=== PATIENT | female | born 1985 | race Caucasian/White ===

== ENCOUNTER → 2021-04-07 16:34 | Outpatient (CLI) | payer OTHER, SELFPAY ==
[2021-04-07 15:12] VITALS: BMI 23.8
[2021-04-12 18:53] LABS: HPV APTIMA, High Risk Negative (Negative)
== END ==
PROVIDERS: Referring Provider Obstetrics & Gynecology; Visit Provider Obstetrics & Gynecology
DX: Z12.4 Encounter for screening for malignant neoplasm of cervix (principal)
CPT/HCPCS: 87624; 88175; G0145

== ENCOUNTER → 2022-07-27 | Outpatient (CLI) | payer BC, SELFPAY ==
[2022-07-27 19:13] LABS: Amphetamine Urine VISTA NEGATIVE (<1000 ng/mL); Barbiturate Urine VISTA NEGATIVE (< 200 ng/mL); Benzodiazepine Urine VISTA NEGATIVE (< 200 ng/mL); Cocaine Urine VISTA NEGATIVE (< 300 ng/mL); Ecstacy Urine VISTA NEGATIVE (< 500 ng/mL); Methadone Urine VISTA NEGATIVE (< 300 ng/mL); PCP Urine VISTA NEGATIVE (< 25 ng/mL); THC Urine VISTA NEGATIVE (< 50 ng/mL); Vista UDS pH Range 5
[2022-07-31 06:06] LABS: Chlamydia By Nucleic Acid AMP Negative (Negative)
[2022-08-02 08:49] LABS: Gonococcus By Nucleic Acid AMP Negative (Negative)
== END | disposition home or self-care (01) ==
PROVIDERS: Visit Provider Obstetrics & Gynecology
DX: Z34.00 Encounter for supervision of normal first pregnancy, unspecified trimester (principal)
CPT/HCPCS: 80307; 87086; 87088; 87491; 87591

== ENCOUNTER → 2022-09-04 | Outpatient (CLI) | payer BC, SELFPAY ==
[2022-09-04 17:07] LABS: Absolute Lymphocyte Count 2.24 X10^3/uL (0.83-4.51); Basophil# 0.07 X10^3/uL; Basophil% 0.5 % (0-1); Eosinophil# 0.32 X10^3/uL; Eosinophils% 2.5 % (0-5); Hematocrit 34.1 % (37-47); Hemoglobin 11.4 g/dL (12.0-15.0); Lymphocyte # 2.24 X10^3/ul (0.83-4.51); Lymphocyte % 17.5 % (19-41); Mean Corp Hgb Conc 33.4 g/dL (32-36); Mean Corpuscular Hgb 30.4 pg (27.0-32.0); Mean Corpuscular Volume 90.9 fL (81-99); Mean Platelet Vol. 8.9 fl (6.2-12.0); Monocyte# 1.07 X10^3/uL; Monocyte% 8.4 % (0-10); NRBC Flagged by Analyzer 0 % (0-5); Neutrophil # 8.96 X10^3/uL (2.7-7.7); Neutrophil % 70.2 % (47-70); Platelet Count 300 K/mm3 (150-450); RBC Distribution Width CV 11.8 % (11.6-14.6); RBC Distribution Width SD 38.9 fl (35.1-43.9); Red Blood Count 3.75 M/mm3 (4.2-5.4); White Blood Count 12.8 K/mm3 (4.4-11.0)
[2022-09-04 18:40] LABS: HIV - WCH Non-Reactive (Nonreactive); Hepatitis B Surface Antigen Non-Reactive (Nonreactive); Hepatitis C Antibody Non-Reactive (Nonreactive); Rubella IgG Equiv (Nonreactive); Syphilis Antibodies Non-reactive
== END | disposition home or self-care (01) ==
PROVIDERS: Referring Provider Obstetrics & Gynecology; Visit Provider Obstetrics & Gynecology
DX: Z34.00 Encounter for supervision of normal first pregnancy, unspecified trimester (principal)
CPT/HCPCS: 36415; 85025; 86703; 86762; 86780; 86803; 86850; 86900; 86901; 87340

== ENCOUNTER → 2022-11-28 | Outpatient (CLI) | payer BC, SELFPAY ==
[2022-11-28 16:13] LABS: Absolute Lymphocyte Count 1.92 X10^3/uL (0.83-4.51); Absolute Neutrophil Count 8.4 X10^3/uL (2.0-7.7); Basophil# 0.04 X10^3/uL; Basophil% 0.3 % (0-1); Eosinophil# 0.23 X10^3/uL; Hematocrit 29.8 % (37-47); Hemoglobin 9.6 g/dL (12.0-15.0); Lymphocyte # 1.92 X10^3/ul (0.83-4.51); Lymphocyte % 16.5 % (19-41); Mean Corp Hgb Conc 32.2 g/dL (32-36); Mean Corpuscular Hgb 28.6 pg (27.0-32.0); Mean Corpuscular Volume 88.7 fL (81-99); Mean Platelet Vol. 8.8 fl (6.2-12.0); Monocyte# 0.87 X10^3/uL; Monocyte% 7.5 % (0-10); NRBC Flagged by Analyzer 0 % (0-5); Platelet Count 307 K/mm3 (150-450); RBC Distribution Width CV 11.9 % (11.6-14.6); RBC Distribution Width SD 38.5 fl (35.1-43.9); Red Blood Count 3.36 M/mm3 (4.2-5.4); White Blood Count 11.7 K/mm3 (4.4-11.0)
[2022-11-28 16:36] LABS: Glucose Challenge Gest 1H 50g 154 mg/dL (70-140)
[2022-11-28 17:13] LABS: HIV - WCH Non-Reactive (Nonreactive); Syphilis Antibodies Non-reactive
== END | disposition home or self-care (01) ==
LOC: PAVLAB 15:53
PROVIDERS: Referring Provider Obstetrics & Gynecology; Visit Provider Obstetrics & Gynecology
DX: Z34.92 Encounter for supervision of normal pregnancy, unspecified, second trimester (principal)
CPT/HCPCS: 36415; 82950; 85025; 86703; 86780; 86900; 86901

== ENCOUNTER → 2022-12-05 | Outpatient (CLI) | payer BC, SELFPAY ==
[2022-12-05 08:11] LABS: Glucose GTT-Gestation. Fasting 86 mg/dL (<105)
[2022-12-05 08:36] LABS: Glucose GTT-Gestational 1 Hr 160 mg/dL (<190)
[2022-12-05 09:30] LABS: Glucose GTT-Gestational 2 Hr 163 mg/dL (<165)
[2022-12-05 11:25] LABS: Glucose GTT-Gestational 3 Hr 109 L (<145)
== END | disposition home or self-care (01) ==
LOC: LAB 06:50
PROVIDERS: Visit Provider Obstetrics & Gynecology
DX: Z13.1 Encounter for screening for diabetes mellitus (principal)
CPT/HCPCS: 36415; 82951; 82952

== ENCOUNTER → 2022-12-25 | Outpatient (CLI) | payer BC, SELFPAY ==
[2022-12-25 15:56] LABS: Absolute Lymphocyte Count 1.84 X10^3/uL (0.83-4.51); Basophil# 0.06 X10^3/uL; Basophil% 0.5 % (0-1); Eosinophil# 0.25 X10^3/uL; Eosinophils% 2.2 % (0-5); Hematocrit 31.1 % (37-47); Hemoglobin 10.1 g/dL (12.0-15.0); Lymphocyte # 1.84 X10^3/ul (0.83-4.51); Lymphocyte % 16.3 % (19-41); Mean Corp Hgb Conc 32.5 g/dL (32-36); Mean Corpuscular Hgb 28.1 pg (27.0-32.0); Mean Corpuscular Volume 86.6 fL (81-99); Mean Platelet Vol. 8.8 fl (6.2-12.0); Monocyte# 0.98 X10^3/uL; Monocyte% 8.7 % (0-10); NRBC Flagged by Analyzer 0 % (0-5); Neutrophil # 7.95 X10^3/uL (2.7-7.7); Neutrophil % 70.3 % (47-70); Platelet Count 277 K/mm3 (150-450); RBC Distribution Width CV 13.8 % (11.6-14.6); RBC Distribution Width SD 42.5 fl (35.1-43.9); Red Blood Count 3.59 M/mm3 (4.2-5.4); White Blood Count 11.3 K/mm3 (4.4-11.0)
== END | disposition home or self-care (01) ==
LOC: PAVLAB 15:41
PROVIDERS: Referring Provider Nurse Practitioner Women's Health; Visit Provider Nurse Practitioner Women's Health
DX: O99.013 Anemia complicating pregnancy, third trimester (principal); Z3A.00 Weeks of gestation of pregnancy not specified
CPT/HCPCS: 36415; 85025

== ENCOUNTER → 2023-01-15 | Outpatient (CLI) | payer BC, SELFPAY ==
[2023-01-16 01:34] LABS: Group B Strep DNA By PCR Negative (Negative); Internal Control PASS; Probe Check PASS; Specimen Processing Control PASS
== END | disposition home or self-care (01) ==
LOC: LABSPEC 16:42
PROVIDERS: Referring Provider Nurse Practitioner Women's Health; Visit Provider Nurse Practitioner Women's Health
DX: Z34.90 Encounter for supervision of normal pregnancy, unspecified, unspecified trimester (principal)
CPT/HCPCS: 87081; 87653

== ENCOUNTER → 2023-01-22 | Outpatient (CLI) | payer BC, SELFPAY ==
[2023-01-22 15:56] LABS: Absolute Lymphocyte Count 1.43 X10^3/uL (0.83-4.51); Absolute Neutrophil Count 6.4 X10^3/uL (2.0-7.7); Basophil# 0.04 X10^3/uL; Basophil% 0.4 % (0-1); Eosinophil# 0.15 X10^3/uL; Eosinophils% 1.7 % (0-5); Hematocrit 33.7 % (37-47); Hemoglobin 10.6 g/dL (12.0-15.0); Lymphocyte # 1.43 X10^3/ul (0.83-4.51); Lymphocyte % 15.7 % (19-41); Mean Corp Hgb Conc 31.5 g/dL (32-36); Mean Corpuscular Hgb 28.3 pg (27.0-32.0); Mean Corpuscular Volume 89.9 fL (81-99); Monocyte# 0.88 X10^3/uL; Monocyte% 9.7 % (0-10); NRBC Flagged by Analyzer 0 % (0-5); Neutrophil # 6.44 X10^3/uL (2.7-7.7); Platelet Count 263 K/mm3 (150-450); RBC Distribution Width CV 15.8 % (11.6-14.6); RBC Distribution Width SD 51.1 fl (35.1-43.9); Red Blood Count 3.75 M/mm3 (4.2-5.4); White Blood Count 9.1 K/mm3 (4.4-11.0)
== END | disposition home or self-care (01) ==
LOC: PAVLAB 15:37
PROVIDERS: Referring Provider Obstetrics & Gynecology; Visit Provider Obstetrics & Gynecology
DX: O99.013 Anemia complicating pregnancy, third trimester (principal)
CPT/HCPCS: 36415; 85025

== ENCOUNTER → 2023-01-29 | Outpatient (CLI) | payer BC, SELFPAY ==
[2023-01-29 16:53] LABS: Absolute Neutrophil Count 6.3 X10^3/uL (2.0-7.7); Basophil# 0.05 X10^3/uL; Basophil% 0.5 % (0-1); Eosinophil# 0.17 X10^3/uL; Eosinophils% 1.8 % (0-5); Hematocrit 35.2 % (37-47); Lymphocyte % 16.9 % (19-41); Mean Corp Hgb Conc 31.3 g/dL (32-36); Mean Corpuscular Hgb 27.7 pg (27.0-32.0); Mean Corpuscular Volume 88.7 fL (81-99); Mean Platelet Vol. 9.1 fl (6.2-12.0); Monocyte# 1.08 X10^3/uL; Monocyte% 11.4 % (0-10); NRBC Flagged by Analyzer 0 % (0-5); Neutrophil # 6.33 X10^3/uL (2.7-7.7); Neutrophil % 67.2 % (47-70); Platelet Count 246 K/mm3 (150-450); RBC Distribution Width CV 16.2 % (11.6-14.6); RBC Distribution Width SD 53.1 fl (35.1-43.9); Red Blood Count 3.97 M/mm3 (4.2-5.4); White Blood Count 9.4 K/mm3 (4.4-11.0)
[2023-01-29 17:20] LABS: Protein, Urine (Random) 9.9 mg/dL (<11.9); Protein:Creat Ratio 419 mg/g CRE (0-200)
[2023-01-29 17:31] LABS: ALB/GLOB Ratio 0.6 RATIO (0.9-2.4); AST(SGOT) 18 U/L (15-37); Alanine Aminotransfer ALT/SGPT 17 U/L (13-56); Albumin, Serum 2.4 g/dL (3.2-5.0); Alkaline Phosphatase 168 U/L (45-117); Anion Gap 9 (5-15); BUN 8 mg/dL (7-18); BUN/Creat Ratio 14.2 RATIO (10-20); Calcium,Total 8.7 mg/dL (8.5-10.1); Chloride 104 mmol/L (98-107); Creatinine, Serum 0.56 mg/dL (0.55-1.02); EST Glomerular Filtration Rate 129 mL/min (>60); Est Glom Filt Rate - Afr Amer 156 mL/min (>60); Globulin 4.1 g/dL (2.2-4.2); Glucose 73 mg/dL (74-106); Potassium 3.9 mmol/L (3.5-5.1); Protein, Total 6.5 g/dL (6.4-8.2); Sodium Level 136 mmol/L (136-145); Uric Acid 2.7 mg/dL (2.6-6.0)
== END | disposition home or self-care (01) ==
PROVIDERS: Referring Provider Registered Nurse; Visit Provider Registered Nurse
DX: Z34.00 Encounter for supervision of normal first pregnancy, unspecified trimester (principal)
CPT/HCPCS: 36415; 80053; 82570; 84156; 84550; 85025; 87086; 87088

== ENCOUNTER → 2023-01-31 | Outpatient (CLI) | payer BC, SELFPAY ==
[2023-01-31 17:26] LABS: 24 Hour Urine Protein 495.8 mg/24HR (<150 MG/24HR); 24HR. UA Prot. Total Volume 2350 mL; 24HR. Urine Creatinine 1.28 g/24 HR (0.70-1.90); Creat.Clear Total Volume 2350 mL; Creatinine Clearance 38 ml/min (100-200); Creatinine Serum Creat 0.6 mg/dL (0.6-1.0); Creatinine Urine < 13.0 mg/dL (NO RANGE EST.); EST Glomerular Filtration Rate 130 mL/min (>60); Est Glom Filt Rate - Afr Amer 157 mL/min (>60); Urine Protein (24 Hour) 21.1 mg/dL (<11.9)
== END | disposition home or self-care (01) ==
LOC: LAB 15:39
PROVIDERS: Visit Provider Obstetrics & Gynecology
DX: O12.10 Gestational proteinuria, unspecified trimester (principal); Z3A.00 Weeks of gestation of pregnancy not specified
CPT/HCPCS: 36415; 81050; 82570; 82575; 84156

== ENCOUNTER 2023-02-05 19:00 | Inpatient (IN) | payer BC, SELFPAY ==
[2023-02-05] VITALS (7 sets, daily range): BP systolic 112–130; BP diastolic 64–69; PULSE 76–110; TEMP 36.3–36.9; O2SAT 96–98; BMI 33.8
--- NOTE | 2023-02-05 19:18 | HP.PCM.OB_ITS ---
HPI - General General Date of Admission: 02/05/23 HPI Narrative MAGY MCNULTY, is a 37 F who presents for IOL secondary to proteinuria. Maternal Data Information ZOEY Calculator Estimated Delivery Date Method Current WG Current Estimate 02/10/23 LMP (Certain) 39w 2d Other Estimates 02/06/23 Ultrasound #1 39w 6d PFSH PFSH Medical History Asthma Home Medications vit,calcium no.40-iron fum 27 mg iron-folate no.1 1 mg tablet (PNV- Select) tab PO 07/25/22 [History Last Taken Unknown] Allergy/AdvReac Type Severity Reaction Status Date / Time No Known Allergies Allergy Verified 01/29/23 15:26 Family History Grandmother Diabetes Social History adopted: No household members: spouse housing: house current occupational status: employed current occupation: teacher current occupational exposures/hazards: Yes (physical holds on kids) pets and animals: Yes (Not managing litterbox) pets and animals: cat(s) history of recent travel: Yes ([place] in May) out of state: Yes out of country: No sexually active: Yes Smoking Status: Never smoker alcohol intake: never substance use type: does not use well-balanced diet: daily or most days caffeine: No eating out: 1-3 times/week during the past year weight has: increased > 10 lbs what type of physical activity do you participate in: none and walking frequency: 1-2 times per week duration: 30-45 minutes/day shari/anglican: Gnosticist seatbelt use: always do you feel safe at home: Yes additional social history: - Quentin ( May 2021) History 1 Elective abortions Hx Para 0 Spontaneous abortions Hx # Term Pregnancies Ectopic pregnancies Hx # Pregnancies Multiple births # of living children Visit Details Expected Delivery Route/Plan Labor Preferences- CB/BF classes: completed labor support person: Quentin labor intervention preferences: [] pain management options preferred: epidural cut cord/dad catch: open to catching and cutting cord! : yes PP control planned: discussed discussed possible routes of delivery and associated risks: [] special requests: [] Plans Covid status: unvaccinated, had covid 07/2021 Flu vaccine: declines Tdap vaccine: given Rhogam: given LARC form signed: yes movement and labor precautions reviewed. Problem list reviewed and updated with the most current plan of care details and appropriate orders placed. Relevant counseling for the gestational age provided. Continue routine care and follow up unless otherwise noted in visit notes/problem list details OB Flowsheet Initial Weight: Not Recorded Date -?-?-?-?-?-?-?-?-?-?-?-?- EGA Weight BP Urine Prot -?-?-?-?-?-?-?-?-?-?-?-?- Glucose FHR FuHt Pres Dilation -?-?-?-?-?-?-?-?-?-?-?-?- Effaced St Visit Note 07/27/22 -?-?-?-?-?-?-?-?-?-?-?-?- 11w 5d 146 lb 8 oz 121/72 -?-?-?-?-?-?-?-?-?-?-?-?- 156 -?-?-?-?-?-?-?-?-?-?-?-?- JV- CRL consiste nt with LMP. declines genetics. 09/04/22 -?-?-?-?--?-?-?-?-?-?-?-?- 17w 2d 151 lb 108/72 Negative -?-?-?-?-?-?-?-?-?-?-?-?- Negative 150 -?-?-?-?-?-?-?-?-?-?-?-?- SM- no vb alisoni ng 10/02/22 -?-?-?-?-?-?-?-?-?-?-?-?- 21w 2d 157 lb 2 oz 112/66 Nega tive -?-?-?-?-?-?-?-?-?-?-?-?- Negative 155 -?-?-?-?-?-?-?-?-?-?-?-?- MH-No VBhoang Had MFM US today, girl. No concerns 10/30/22 -?-?-?-?-?-?-?-?-?-?-?-?- 25w 2d 163 lb 102/84 -?-?-?-?-?-?-?-?-?-?-?-?- 145 -?-?-?-?-?-?-?-?-?-?-?-?- SM- no vb lof go od fm no regular ctx 11/28/22 -?-?-?-?-?-?-?-?-?-?-?-?- 29w 3d 169 lb 119/71 Negative -?-?-?-?-?-?-?-?-?-?-?--?- Negative 145 -?-?-?-?-?-?-?-?-?-?-?-?- SM- no vb lof go od fm no regular ctxdiscussed adding iron and give rhogam tdap, schedule 3 hr gct 12/11/22 -?-?-?-?-?-?-?-?-?-?-?-?- 31w 2d 168 lb 8 oz 106/74 Nega tive -?-?-?-?-?-?-?-?-?-?-?-?- Negative 147 31 -?-?-?-?-?-?-?-?-?-?-?-?- MH-No VB, LOF. G ood FM. Larc. 12/25/22 -?-?-?-?-?-?-?-?-?-?-?-?- 33w 2d 175 lb 114/74 Negative -?-?-?-?-?-?-?-?-?-?-?-?- Negative 140 34 -?-?-?-?-?-?-?-?-?-?-?-?- SM- no vb lof go od fm n oregualr ctx 01/10/23 -?-?-?-?-?-?-?-?-?-?-?-?- 35w 4d 177 lb 2 oz 120/80 Nega tive -?-?-?-?-?-?-?-?-?-?-?-?- Negative 157 34 -?-?-?-?-?-?-?-?-?-?-?-?- JV- no lof ,vagi nal bleeding, or dec fm. return next week for gbs. 01/15/23 -?-?-?-?-?-?-?-?-?-?-?-?- 36w 2d 180 lb 104/70 Negative -?-?-?-?-?-?-?-?-?-?-?-?- Negative 143 36 -?-?-?-?-?-?-?-?-?-?-?-?- MH-NO VB. LOF. G ood FM. GBS done 01/22/23 -?-?-?-?-?-?-?-?-?-?-?-?- 37w 2d 181 lb 8 oz 117/76 Nega tive -?-?-?-?-?-?-?-?-?-?-?-?- Negative 145 38 -?-?-?-?-?-?-?-?-?-?-?-?- SM- no vb lof go od fm n oregular ctx 01/29/23 -?-?-?-?-?-?-?-?-?-?-?-?- 38w 2d 181 lb 8 oz 105/70 Trac e -?-?-?-?-?-?-?-?-?-?-?-?- Negative 138 38 -?-?-?-?-?-?-?-?-?-?-?-?- LC- no vb/ctx/lo f. good fm. +proteinuria, LC- no vb/ctx/lof. good fm. +proteinuria, PEC outpt work up along with urine cx. d/w Natalia BENTLEY. 02/02/23 -?-?-?-?-?-?-?-?-?-?-?-?- 38w 6d 183 lb 2 oz 116/75 1+ -?-?-?-?-?-?-?-?-?-?-?-?- Negative 140 39 Cephalic 2 -?-?-?-?-?-?-?-?-?-?-?--?- 60 -2 JV- pt has asymptomatic proteinuria. std reactive. she has 1+ pitting edema bilaterally. plan for IOL at 39 weeks. will need follow up with pcp after delivery to rule out kidney disease. no signs of pre-e at this time. 02/05/23 -?-?-?-?-?-?-?-?-?-?-?-?- 39w 2d -?-?-?-?-?-?-?-?-?-?-?-?- -?-?-?-?-?-?-?-?-?-?-?-?- NST FHR Rate Baby A Baseline: 130 Variability:: Moderate Accelerations:: 15 x 15 Decelerations:: None NST Reactive:: Yes FHR Category:: Category I Uterine Activity:: irregular ROS Constitutional Constitutional: Reports systems reviewed and no addt'l complaints, except as documented Eyes Eyes: Denies change in vision ENT HEENT: Reports systems reviewed and no addt'l complaints, except as documented; Denies headache(s) Cardiovascular Cardiovascular: Reports systems reviewed and no addt'l complaints, except as documented; Denies chest pain or dyspnea Respiratory/Chest Respiratory/Chest: Reports systems reviewed and no addt'l complaints, except as documented Gastrointestinal Gastrointestinal: Reports systems reviewed and no addt'l complaints, except as documented; Denies abdominal pain Genitourinary Genitourinary: Reports systems reviewed and no addt'l complaints, except as documented, contractions Details: present (irregular) and movement Details: present; Denies dysuria or genital lesions Musculoskeletal Musculoskeletal: Reports systems reviewed and no addt'l complaints, except as documented Neurologic Neurologic: Reports systems reviewed and no addt'l complaints, except as documented Endocrine Endocrinology: Reports systems reviewed and no addt'l complaints, except as documented Physical Exam Const alert, oriented x3, no apparent distress and healthy appearing HEENT normocephalic and moist oral mucous membranes Head and Scalp: atraumatic Neck full ROM, no lymphadenopathy, supple and thyroid normal General: trachea midline Lymph Lymphatic: no lymphadenopathy noted Chest inspection of chest normal Resp normal respiratory effort Cardio regular rate GI normal to inspection, nondistended, normoactive bowel sounds, soft to palpation and non-tender Inspection: gravid external exam normal Manual OB Exam: estimated gestational size appropriate, presentation cephalic, dilated, effaced and station Extremity normal to inspection General Extremity: Negative for edema Skin no rashes or lesions noted Neuro no focal motor deficits and deep tendon reflexes 2+ bilaterally Motor Exam: strength 5/5 throughout and clonus absent Psych mental status grossly normal Labs Labs Labs: Blood Type O NEGATIVE Antibody Screen NEGATIVE Hct 35.2 % (37-47) L Hgb 11.0 g/dL (12.0-15.0) L Syphilis Total Ab Non-reactive Rubella IgG Antibody Equiv (Nonreactive) Hep Bs Antigen Non-Reactive (Nonreactive) Chlamydia DNA (NISA) Negative (Negative) Neisseria gonorrhoeae DNA (NISA) Negative (Negative) HIV 1&2 Antibody Non-Reactive (Nonreactive) Glucose 1 Hr 50 gm 154 mg/dL (70-140) H Group B Strep DNA Negative (Negative) Assessment & Plan (1) Proteinuria affecting : COMMENT: outpatient PEC labs urine culture to r/o UTI (2) Anemia affecting in third trimester: COMMENT: iron. anemia improved (3) Abnormal glucose affecting : COMMENT: abnl 1 hr, 3 hr gtt. nl (4) Rubella immune status not known: COMMENT: equivocal MMR pp (5) Rh negative state in antepartum period: COMMENT: Rhogam @ 28 weeks and PRN (6) Supervision of normal first : COMMENT: [id number], ZOEY 02/10/23, girl raymundo Quentin (7) : QUALIFIERS: Weeks of gestation: 38 weeks Qualified Code(s): Z3A.38 - 38 weeks gestation of COMMENT: Negative GBS, anatomy nl, discussed genetic & carrier testing and declines (8) Encounter for induction of labor: COMMENT: cytotec overnight planned, epidural PRN PLAN: Plan Patient presents IOL, plan management for with cytotec. Pain management: plans epidural. GBS negative. Management of any complications: proteinuria I have reviewed the [facility] and made any clinically relevant updates.
[2023-02-05 20:11] LABS: Absolute Lymphocyte Count 1.22 X10^3/uL (0.83-4.51); Absolute Neutrophil Count 6.2 X10^3/uL (2.0-7.7); Basophil# 0.03 X10^3/uL; Basophil% 0.4 % (0-1); Eosinophil# 0.13 X10^3/uL; Eosinophils% 1.6 % (0-5); Hematocrit 32.5 % (37-47); Hemoglobin 10.4 g/dL (12.0-15.0); Lymphocyte # 1.22 X10^3/ul (0.83-4.51); Lymphocyte % 14.6 % (19-41); Mean Corpuscular Hgb 27.9 pg (27.0-32.0); Mean Corpuscular Volume 87.1 fL (81-99); Mean Platelet Vol. 9.3 fl (6.2-12.0); Monocyte% 8.4 % (0-10); NRBC Flagged by Analyzer 0 % (0-5); Neutrophil # 6.18 X10^3/uL (2.7-7.7); Neutrophil % 73.9 % (47-70); Platelet Count 228 K/mm3 (150-450); RBC Distribution Width CV 16.1 % (11.6-14.6); RBC Distribution Width SD 51.3 fl (35.1-43.9); Red Blood Count 3.73 M/mm3 (4.2-5.4); White Blood Count 8.4 K/mm3 (4.4-11.0)
[2023-02-05] MEDS: Lactated Ringers 1,000 ML 200 ML IV (21:00)
[2023-02-05] MEDS: Oxytocin 15 Units/NS 250ml 15 UNITS/250 ML IV.SOLN 2 UNITS IV (21:07)
[2023-02-05 21:45] LABS: Syphilis Antibodies Non-reactive
[2023-02-06] VITALS (40 sets, daily range): BP systolic 95–122; BP diastolic 43–72; PULSE 72–98; RESP 16; TEMP 36.1–37.1; O2SAT 94–100
[2023-02-06] MEDS: Lactated Ringers 1,000 ML 200 ML IV ×2 (02:10→07:19)
[2023-02-06] MEDS: LACTATED RINGERS 500 ML 999 ML IV (03:27)
[2023-02-06] MEDS: fentaNYL-bupivacaine (epidural) 100 ML BAG EPIDURAL (04:20)
[2023-02-06] MEDS: Terbutaline 1 MG/ML Vial 0.25 MG SC (08:07)
[2023-02-06] MEDS: Sodium Citrate/Citric Acid 30 ML UDC PO (08:08)
[2023-02-06] MEDS: Cefazolin 2 GM in 0.9% Normal Saline 100 ML IV (08:17)
[2023-02-06] MEDS: Methylergonovine 0.2 MG/ML Ampul IM (08:36)
[2023-02-06] MEDS: Oxytocin 15 Units/NS 250ml 15 UNITS/250 ML IV.SOLN 83 UNITS IV (09:15)
--- NOTE | 2023-02-06 09:24 | PCM.PN.OB ---
Subjective Subjective late entry from 7:50 am : patient is resting comfortably in bed with epidural. Her membranes ruptured spontaneously at 3 am but nurse reports a forebag present. current tracing: FHT: Moderate variability reactive no decelerations category I tracing [place]: q 2 min Contractions cx: 7/90/-1 breech presentation on exam and confirmed by ultrasound A/P: breech presentation in labor- atul section now. Objective Data Objective Data Vital Signs: Vital Signs Temp Pulse Resp BP Pulse Ox O2 Del Method 97.0 F L 83 16 101/52 L 100 Room Air 02/06/23 09:09 02/06/23 09:09 02/06/23 09:09 02/06/23 09:09 02/06/23 09:09 02/06/23 09:09 Oxygen Delivery Method Room Air Weight: 185 lb Body Mass Index (BMI) 33.8 Intake & Output: Intake and Output for Last 24 Hours 02/04/23 02/05/23 02/06/23 23:59 23:59 23:59 Intake Total 6.10 / 6.10 2781.83 / 2781.83 Balance 6.10 / 6.10 2781.83 / 2781.83 Lab / Micro Data Result Diagrams: 02/05/23 19:30 Labs: Laboratory Results - last 24 hr 02/05/23 19:30: WBC 8.4, RBC 3.73 L, Hgb 10.4 L, Hct 32.5 L, MCV 87.1, MCH 27.9, MCHC 32.0, RDW Std Deviation 51.3 H, RDW Coeff of Gina 16.1 H, Plt Count 228, MPV 9.3, Immature Gran % (Auto) 1.100 H, Neut % (Auto) 73.9 H, Lymph % (Auto) 14.6 L, [place] % (Auto) 8.4, Eos % (Auto) 1.6, Baso % (Auto) 0.4, Absolute Neuts (auto) 6.2, Absolute Lymphs (auto) 1.22, Nucleated RBC % 0 02/05/23 19:30: Blood Type O NEGATIVE, Antibody Screen NEGATIVE 02/05/23 20:30: Syphilis Total Ab Non-reactive
--- NOTE | 2023-02-06 09:26 | OP.PCM_ITS ---
Assessment & Plan (1) Encounter for induction of labor: COMMENT: cytotec overnight planned, epidural PRN (2) Proteinuria affecting : COMMENT: outpatient PEC labs urine culture to r/o UTI (3) Anemia affecting in third trimester: COMMENT: iron. anemia improved (4) Abnormal glucose affecting : COMMENT: abnl 1 hr, 3 hr gtt. nl (5) Rubella immune status not known: COMMENT: equivocal MMR pp (6) Rh negative state in antepartum period: COMMENT: Rhogam @ 28 weeks and PRN (7) Supervision of normal first : COMMENT: [id number], ZOEY 02/10/23, girl raymundo Quentin (8) : QUALIFIERS: Weeks of gestation: 38 weeks Qualified Code(s): Z3A.38 - 38 weeks gestation of COMMENT: Negative GBS, anatomy nl, discussed genetic & carrier testing and declines (9) Breech presentation: Maternal Data Information ZOEY Calculator Estimated Delivery Date Method Current WG Current Estimate 02/10/23 LMP (Certain) 39w 3d Other Estimates 02/06/23 Ultrasound #1 40w 0d Details Operative Information Date of Procedure: 02/06/23 Pre-Operative Diagnosis: 37 y/o @ 39 weeks, proteinuria without hypertension, and breech presentation in labor Post-Operative Diagnosis: 37 y/o @ 39 weeks, proteinuria without hypertension, and breech presentation in labor Classification: ARSH Procedure Type: low transverse executive creative director #1: Radha Magallon Type of Anesthesia: Epidural Antibiotic Given: Ancef 2 grams IV x1 Estimated Blood Loss: 800cc Findings Description of Procedure: The patient is a 37y/o @ 39 weeks presented for IOL due to proteinuria without htn. she was found to be 7 cm dilated and breech this am. Epidural anesthesia was placed without difficulty. Lombardi catheter was placed. The patient was placed in the dorsal supine position with leftward tilt. Patient was prepped and draped in the normal sterile fashion. Pfannenstiel skin incision was made with the scalpel and carried through to the underlying layer of fascia with the scalpel. Fascia was nicked in the midline and the incision extended laterally. The rectus bellies were dissected off superiorly and inferiorly with out complication both sharply and bluntly. The peritoneum was entered digitally. The incision was stretched and a low transverse uterine incision was made with the scalpel. The 's buttocks was delivered and a sterile towel was wrapped around the infants waist. The anterior then posterior shoulders were delivered followed by the. The cord was clamped and cut and the was handed off to awaiting nurse. The placenta was delivered spontaneously immediately following and was noted to be intact and have a three- vessel cord. The uterus was exteriorized cleared of all clots and debris, and the incision was closed in a double layer closure using #1 Monocryl. The ovaries and fallopian tubes were noted to be within normal limits. The uterus was returned to the maternal abdomen and gutters were cleared of all clots and debris. The peritoneum was closed with 3-0 Monocryl in a running fashion. Gloves were changed prior to fascial closure. Fascia was closed with 0 PDS in a running fashion. Subcutaneous tissue was copiously irrigated and the skin was closed with 3-0 Monocryl in a subcuticular fashion. Mepilex dressing was applied without complication. Patient was taken to recovery in stable condition. It was discussed with the patient that based on the clinical information obtained during this encounter, combined with her history, at this time I would recommend or repeat section for future deliveries if further pregnancies are desired. baby girl Raymundo weight 9 lbs 2 oz Presentation: Positive for Elias Breech Amniotic Fluid Description: Clear Placental Delivery Description: Manual Removal Placenta Disposition: [facility] Cord Vessel Description: 3 Vessels Cord Entanglement: None A Gender: Female (1 minute): 9 (5 minute): 9 Delayed Cord Clamping: Yes Complications Risks of Surgery Discussed w/Patient: Bleeding, Anesthesia Risks, Infection, Need for Future C-Sections and Injury to surrounding structure(s) including bowel and bladder Multi Select Codes Urinary/Genital Urinary/Genital CPT Codes: 47467 Delivery [facility]
[2023-02-06] MEDS: Ketorolac 30 MG/ML Syringe IV ×3 (09:46→20:36)
[2023-02-06] MEDS: 0.9% Saline Lock 10 ML Syringe IV ×3 (09:46→20:37)
[2023-02-06] MEDS: Acetaminophen 500 MG Tablet 1000 MG PO ×2 (11:18→17:11)
[2023-02-06] MEDS: Senna/Docusate Sodium 1 Tablet PO (11:19)
--- NOTE | 2023-02-07 00:23 | NURSING ---
This RN encouraging pt to void. pt sat on the toilet for x40 minutes trying to stimulate a void. unable to void, this RN encouraged pt to get in the warm shower to help. pt was still unable to void. this RN and lost charge card clerk Loretta at bedside to straight cath pt, 850 cc or urine exptied from the bladder. this RN encouraged fluids and frequent toileting to pt. pt verbalized understanding.
[2023-02-07] MEDS: Acetaminophen 500 MG Tablet 1000 MG PO ×3 (00:42→12:44)
[2023-02-07 04:07] VITALS: BP 109/59; PULSE 90; RESP 14; TEMP 36.6; O2SAT 97
[2023-02-07] MEDS: 0.9% Saline Lock 10 ML Syringe IV (04:15)
[2023-02-07] MEDS: Ketorolac 30 MG/ML Syringe IV (04:16)
[2023-02-07 04:32] LABS: Hematocrit 27.4 % (37-47); Hemoglobin 8.7 g/dL (12.0-15.0); Mean Corp Hgb Conc 31.8 g/dL (32-36); Mean Corpuscular Hgb 28.2 pg (27.0-32.0); Mean Platelet Vol. 8.9 fl (6.2-12.0); Platelet Count 183 K/mm3 (150-450); RBC Distribution Width CV 16.4 % (11.6-14.6); RBC Distribution Width SD 53.3 fl (35.1-43.9); Red Blood Count 3.08 M/mm3 (4.2-5.4); White Blood Count 13.4 K/mm3 (4.4-11.0)
[2023-02-07 08:00] VITALS: BP 103/59; PULSE 98; RESP 17; TEMP 36.3; O2SAT 97
--- NOTE | 2023-02-07 08:00 | PCM.PN.OB ---
Subjective Subjective Patient is laying in bed comfortably without complaints. She states that she slept on an off during the night. Lochia is mild to moderate (like a heavy day cycle) and pain is minimal. She is requesting to go home today if possible. Objective Data Objective Data Vital Signs: Vital Signs Temp Pulse Resp BP Pulse Ox O2 Del Method 97.8 F 90 14 109/59 L 97 Room Air 02/07/23 04:07 02/07/23 04:07 02/07/23 04:07 02/07/23 04:07 02/07/23 04:07 02/07/23 04:07 Oxygen Delivery Method Room Air Weight: 185 lb Body Mass Index (BMI) 33.8 Intake & Output: Intake and Output for Last 24 Hours 02/05/23 02/06/23 02/07/23 23:59 23:59 23:59 Intake Total 6.10 / 6.10 3341.83 / 3341.83 Output Total 2550 / 2550 1050 / 1050 Balance 6.10 / 6.10 791.83 / 791.83 -1050 / -1050 Lab / Micro Data Result Diagrams: 02/07/23 04:20 Labs: Laboratory Results - last 24 hr 02/06/23 11:25: Screen NEGATIVE, Baby's Blood Type A POSITIVE, Baby's LIU NEGATIVE 02/07/23 04:20: WBC 13.4 H, RBC 3.08 L, Hgb 8.7 L, Hct 27.4 L, MCV 89.0, MCH 28.2, MCHC 31.8 L, RDW Std Deviation 53.3 H, RDW Coeff of Gina 16.4 H, Plt Count 183, MPV 8.9 ROS Constitutional Constitutional: Reports systems reviewed and no addt'l complaints, except as documented Cardiovascular Cardiovascular: Denies chest pain, dizziness, dyspnea or irregular heart rhythm Respiratory/Chest Respiratory/Chest: Denies cough, pain on inspiration or shortness of breath at rest Gastrointestinal Gastrointestinal: Denies abdominal pain, nausea or vomiting Genitourinary Genitourinary: Denies burning urination Musculoskeletal Musculoskeletal: Denies muscle cramps, muscle spasms or muscle weakness Neurologic Neurologic: Denies confusion, dizziness, headache(s) or lack of coordination Psychiatric Psychiatric: Denies anxiety, behavioral changes or depression Physical Exam HEENT normocephalic Resp normal respiratory effort and normal air movement GI soft to palpation, non-tender and non-distended Rectal Exam: other Other Details: Incision is clean, dry, and intact no CVA tenderness Extremity normal to inspection General Extremity: edema bilateral (trace ) Assessment & Plan (1) Delivery by section: COMMENT: 02/06/23 breech LELO Robins (2) Breech presentation: (3) Rubella immune status not known: COMMENT: equivocal MMR pp (4) Rh negative state in antepartum period: COMMENT: Rhogam @ 28 weeks and PRN PLAN: Plan s/p LTCS PPD # 1 1. routine post care 2. breast feeding- support given 3. rh neg rhogam work up ordered 4. rubella non- immune- vaccinate prior to dc 5. dc to home later today if all dc criteria met.
--- NOTE | 2023-02-07 08:04 | DCINST_ITS ---
Discharge Instructions Diet Discharge Diet: No restrictions Activity Discharge Activity: May Not Drive (for 2 weeks or while taking narcotic pain medications.), May Shower and May Take a Tub Bath (in 7 days.) May resume sexual activity in: 4-6 weeks Weight Bearing Status: Full weight bearing Lifting Restrictions: 20 pounds Dressing / Incision Call your doctor if your incision/area has: Continuous Slow Oozing, Sudden Increased Bleeding, Increased Pain/ Swelling, Increased Redness and Foul Smelling Discharge Call your doctor if you observe: Fever of 101 or Higher and Using more than 1 pad per hour Suture Line Care: Avoid Pulling/Pushing and Avoid Pinching/Bending Cleanse incision/area with: Soap & Water and Keep Dressing Clean & Dry Follow Up Care Please Follow Up With: Angela Cruz DO When: Call [phone] to make an appointment for an incision check in 1-2 weeks. Test Results: Test results from this visit will be discussed in further detail at your follow- up appointment, if applicable. Discharge Plan Admission Admit Date/Time: 02/05/23 19:00 Primary Reason for Your Visit: Attending Provider: Angela Cruz Primary Care Provider: Khadra Flaherty Primary Discharge Orders/Prescriptions Prescriptions: New naproxen 500 mg tablet 500 mg PO BID PRN (Reason: pain) Qty: 30 0RF ferrous gluconate 324 mg (37.5 mg iron) tablet 324 mg PO DAILY Qty: 30 1RF docusate sodium [Colace] 100 mg capsule 100 mg PO DAILY Qty: 30 0RF No Action PNV-Select 27-1 mg tablet PO Referrals / Follow Up: Care PhysicianKhadra Primary [Primary Care Provider] - Disposition Disposition (needs filled in before D/C Order can be placed): Home, Self Care
[2023-02-07] MEDS: Senna/Docusate Sodium 1 Tablet PO (11:04)
[2023-02-07] MEDS: Naproxen 500 MG Tablet PO (11:04)
[2023-02-07 12:45] VITALS: BP 113/61; PULSE 98; RESP 18; TEMP 36.1
--- NOTE | 2023-02-12 09:35 | NURSING ---
Follow up done with Sunday's visit with Rubén. Patient reports a satisfactory experience and doesn't appear to be experiencing any complications PP at this time
== END 2023-02-07 15:40 | disposition home or self-care (01) | DRG 788 ==
PROVIDERS: Obstetrics & Gynecology; Admitting Provider Obstetrics & Gynecology; Visit Provider Obstetrics & Gynecology
DX: O32.1XX0 Maternal care for breech presentation, not applicable or unspecified (principal); O99.814 Abnormal glucose complicating childbirth; O12.14 Gestational proteinuria, complicating childbirth; Z37.0 Single live birth; O99.02 Anemia complicating childbirth; O42.92 Full-term premature rupture of membranes, unspecified as to length of time between rupture and onset of labor; O26.893 Other specified pregnancy related conditions, third trimester; Z67.41 Type O blood, Rh negative; Z3A.39 39 weeks gestation of pregnancy; Z86.16 Personal history of COVID-19
CPT/HCPCS: 59025; 59050; 85025; 85027; 85461; 86780; 86850; 86900; 86901; 99221; J7120; A4216; G0378; J2790

== ENCOUNTER → 2024-02-19 | Outpatient (CLI) | payer BC, SELFPAY ==
[2024-02-19 10:27] LABS: Absolute Lymphocyte Count 0.95 X10^3/uL (0.83-4.51); Absolute Neutrophil Count 7.2 X10^3/uL (2.0-7.7); Basophil# 0.05 X10^3/uL; Basophil% 0.6 % (0-1); Eosinophil# 0.09 X10^3/uL; Hematocrit 35.3 % (37-47); Hemoglobin 11.8 g/dL (12.0-15.0); Lymphocyte # 0.95 X10^3/ul (0.83-4.51); Lymphocyte % 10.6 % (19-41); Mean Corp Hgb Conc 33.4 g/dL (32-36); Mean Corpuscular Hgb 29.4 pg (27.0-32.0); Mean Corpuscular Volume 87.8 fL (81-99); Mean Platelet Vol. 8.9 fl (6.2-12.0); Monocyte# 0.59 X10^3/uL; Monocyte% 6.6 % (0-10); NRBC Flagged by Analyzer 0 % (0-5); Neutrophil # 7.21 X10^3/uL (2.7-7.7); Neutrophil % 80.6 % (47-70); Platelet Count 285 K/mm3 (150-450); RBC Distribution Width CV 12.3 % (11.6-14.6); RBC Distribution Width SD 39.6 fl (35.1-43.9); Red Blood Count 4.02 M/mm3 (4.2-5.4); White Blood Count 8.9 K/mm3 (4.4-11.0)
[2024-02-19 10:46] LABS: ALB/GLOB Ratio 0.8 RATIO (0.9-2.4); AST(SGOT) 17 U/L (15-37); Alanine Aminotransfer ALT/SGPT 28 U/L (13-56); Albumin, Serum 3.4 g/dL (3.2-5.0); Alkaline Phosphatase 77 U/L (45-117); Anion Gap 7 (5-15); BUN 9 mg/dL (7-18); BUN/Creat Ratio 14.2 RATIO (10-20); Calcium,Total 8.9 mg/dL (8.5-10.1); Chloride 106 mmol/L (98-107); Creatinine, Serum 0.63 mg/dL (0.55-1.02); EST Glomerular Filtration Rate 112 mL/min (>60); Est Glom Filt Rate - Afr Amer 135 mL/min (>60); Glucose 94 mg/dL (74-106); Potassium 3.8 mmol/L (3.5-5.1); Protein, Total 7.4 g/dL (6.4-8.2); Sodium Level 136 mmol/L (136-145)
[2024-02-19 11:35] LABS: HIV - WCH Non-Reactive (Nonreactive); Hepatitis B Surface Antigen Non-Reactive (Nonreactive); Hepatitis C Antibody Non-Reactive (Nonreactive); Rubella IgG Reactive (Nonreactive); Syphilis Antibodies Non-reactive
[2024-02-21 06:09] LABS: Chlamydia By Nucleic Acid AMP Negative (Negative); Gonococcus By Nucleic Acid AMP Negative (Negative)
== END | disposition home or self-care (01) ==
PROVIDERS: Advanced Practice Midwife; Visit Provider Obstetrics & Gynecology
DX: Z34.90 Encounter for supervision of normal pregnancy, unspecified, unspecified trimester (principal)
CPT/HCPCS: 36415; 80053; 85025; 86703; 86762; 86780; 86803; 86850; 86900; 86901; 87086; 87088; 87340; 87491; 87591

== ENCOUNTER → 2024-04-25 | Outpatient (CLI) | payer BC, SELFPAY ==
--- NOTE | 2024-04-25 15:28 | US_ITS ---
HISTORY: anatomy. LMP 12/10/2023. TECHNIQUE: Transabdominal pelvic ultrasound was performed. 92 images. COMPARISON: None. FINDINGS: INTRAUTERINE GESTATION(s): Single. PRESENTATION: Breech. HEART MOTION: 152 bpm. PLACENTA: Anterior. No placenta previa. CERVIX: 4.1 cm long and closed. AMNIOTIC FLUID INDEX (ISAI): 15 cm. Largest fluid pocket 4.5 cm. biometry- BIPARIETAL DIAMETER: 4.7 cm, corresponding to 20 weeks 2 days. HEAD CIRCUMFERENCE: 17.3 cm, corresponding to 19 weeks 6 days. ABDOMINAL CIRCUMFERENCE: 16.3 cm, corresponding to 21 weeks 3 days. FEMUR LENGTH: 3.4 cm, corresponding to 20 weeks 5 days. ESTIMATED GESTATIONAL AGE: 20 weeks 2 days. ESTIMATED DUE DATE (ZOEY): 09/10/2024. ESTIMATED WEIGHT: 392 g corresponding to 98th percentile. ANATOMY: Anterior and posterior cranial fossa, orbits, upper and lower extremities, four-chamber heart, stomach, three-vessel cord insertion, kidneys, and bladder visualized. Limited evaluation of facial profile as well as the nose/lips. Limited evaluation of the spine due to position. US/OB Anatomy Scan IMPRESSION: Single living intrauterine currently in breech presentation with an estimated gestational age of 20 weeks 2 days. Electronically Signed: Ester Garcia MD at 11:48 EDT ,
== END | disposition home or self-care (01) ==
LOC: US 15:27
PROVIDERS: Referring Provider Obstetrics & Gynecology; Visit Provider Obstetrics & Gynecology
DX: O09.90 Supervision of high risk pregnancy, unspecified, unspecified trimester (principal); Z3A.00 Weeks of gestation of pregnancy not specified
CPT/HCPCS: 76805

== ENCOUNTER → 2024-05-13 | Outpatient (CLI) | payer OTHER, SELFPAY ==
--- NOTE | 2024-05-13 14:24 | US_ITS ---
STUDY: SECOND AND THIRD TRIMESTER OBSTETRICAL ULTRASOUND REASON FOR EXAM: Female, 38 years old follow up anatomy scan LMP: December 10, 2023. TECHNIQUE: Transabdominal TECHNICAL QUALITY: Adequate. PRIOR ULTRASOUND: Comparison is made with prior study April 25, 2024. FINDINGS: There is a single intrauterine fetus. The fetus is in a breech presentation. There is demonstrated cardiac activity with a heart rate of 155 bpm. There is a normal amniotic fluid volume. The largest amniotic fluid pocket measures 4.6 cm. The amniotic fluid index (ISAI) is within normal limits. The placenta is anterior in location and is not low lying. There are Grade 0 placental changes. The cervix measures 3.4 cm in length. The adnexal regions are not visualized. BIOMETRY: age by prior US: 22 weeks, 6 days. ZOEY by prior US: September 10, 2024. Age by LMP: 22 weeks, 1 days. ZOEY by LMP: September 15, 2024. ANATOMY: Gender: Male Cranium: Normal lateral ventricles. Normal choroid plexus. Normal cerebellum. Normal cisterna magna. Normal face, nose and lips. Chest: Normal 4-chamber heart. Abdomen/Pelvis: Normal diaphragm. Normal stomach. Normal abdominal wall. Normal cord insertion. Normal 3 vessel cord. Normal kidneys. Normal bladder. Spine: Normal cervical spine. Normal thoracic spine. Normal lumbar spine. Normal sacrum. Extremities: Normal bilateral upper extremities. Normal bilateral lower extremities. US/OB Limited (No Biometrics) IMPRESSION: Live uterine gestation with a mean gestational age of 22 weeks and 6 days. Electronically Signed: Claude Jaimes MD at 12:34 EDT ,
== END | disposition home or self-care (01) ==
PROVIDERS: Referring Provider Obstetrics & Gynecology; Visit Provider Obstetrics & Gynecology
DX: O09.90 Supervision of high risk pregnancy, unspecified, unspecified trimester (principal); Z3A.00 Weeks of gestation of pregnancy not specified
CPT/HCPCS: 76815

== ENCOUNTER → 2024-06-27 | Outpatient (CLI) | payer OTHER, SELFPAY ==
[2024-06-27 12:53] LABS: Absolute Lymphocyte Count 1.33 X10^3/uL (0.83-4.51); Absolute Neutrophil Count 7.1 X10^3/uL (2.0-7.7); Basophil# 0.05 X10^3/uL; Basophil% 0.5 % (0-1); Eosinophil# 0.16 X10^3/uL; Eosinophils% 1.7 % (0-5); Hematocrit 34.7 % (37-47); Hemoglobin 11.4 g/dL (12.0-15.0); Lymphocyte # 1.33 X10^3/ul (0.83-4.51); Lymphocyte % 14.3 % (19-41); Mean Corp Hgb Conc 32.9 g/dL (32-36); Mean Corpuscular Hgb 30.5 pg (27.0-32.0); Mean Corpuscular Volume 92.8 fL (81-99); Mean Platelet Vol. 8.7 fl (6.2-12.0); Monocyte# 0.52 X10^3/uL; Monocyte% 5.6 % (0-10); NRBC Flagged by Analyzer 0 % (0-5); Neutrophil # 7.11 X10^3/uL (2.7-7.7); Neutrophil % 76.5 % (47-70); Platelet Count 230 K/mm3 (150-450); RBC Distribution Width CV 12.4 % (11.6-14.6); RBC Distribution Width SD 42.7 fl (35.1-43.9); Red Blood Count 3.74 M/mm3 (4.2-5.4); White Blood Count 9.3 K/mm3 (4.4-11.0)
[2024-06-27 13:17] LABS: Glucose Challenge Gest 1H 50g 106 mg/dL (70-140)
[2024-06-27 13:47] LABS: HIV - WCH Non-Reactive (Nonreactive); Syphilis Antibodies Non-reactive
== END | disposition home or self-care (01) ==
LOC: LAB 12:29
PROVIDERS: Referring Provider Obstetrics & Gynecology; Visit Provider Obstetrics & Gynecology
DX: O26.899 Other specified pregnancy related conditions, unspecified trimester (principal); Z67.91 Unspecified blood type, Rh negative; Z13.1 Encounter for screening for diabetes mellitus; Z3A.00 Weeks of gestation of pregnancy not specified
CPT/HCPCS: 36415; 82950; 85025; 86703; 86780; 86850; 86900; 86901

== ENCOUNTER → 2024-08-15 | Outpatient (CLI) | payer OTHER, SELFPAY ==
--- NOTE | 2024-08-15 13:53 | US_ITS ---
STUDY: SECOND AND THIRD TRIMESTER OBSTETRICAL ULTRASOUND - LIMITED REASON FOR EXAM: Female, 39 years old routine survey LMP: 12/10/2023 PRIOR ULTRASOUND: None. TECHNIQUE: Transabdominal TECHNICAL QUALITY: Adequate. FINDINGS: There is a single intrauterine fetus. The fetus is in a cephalic presentation. There is demonstrated cardiac activity with a heart rate of 141 bpm. There is a normal amniotic fluid volume. The largest amniotic fluid pocket measures 7.1 x 4.1 cm. The amniotic fluid index (ISAI) is 15.1 cm. The placenta is anterior in location and is not low lying. There are Grade 2 placental changes. The cervix was not measured BIOMETRY: BPD: 8.99 cm: 36 weeks, 3 days HC: 33.07 cm: 37 weeks, 5 days AC: 34.68 cm: 38 weeks, 4 days FL: 7.24 cm: 37 weeks, 0 days age by prior US: 22 weeks, 6 days. age by current US: 37 weeks, 3 days. ZOEY by current US: 09/02/2024. Estimated weight: 3352 grams, +/- 503 grams, 96 percentile. Note is made that the medical program specialist noted the cord was around the fetus neck. US/OB Limited With Biometrics IMPRESSION: Single live intrauterine at 37 weeks 3 days by current ultrasound with ZOEY of 09/02/2024. Heart rate at 141 bpm. Normal growth noted since the previous study. Geography Head notes and documents the umbilical cord is around the neck. Electronically Signed: Jeremy Nance MD at 11:40 EDT ,
== END | disposition home or self-care (01) ==
PROVIDERS: Referring Provider Advanced Practice Midwife; Visit Provider Advanced Practice Midwife
DX: O09.523 Supervision of elderly multigravida, third trimester (principal); Z3A.36 36 weeks gestation of pregnancy
CPT/HCPCS: 76816

== ENCOUNTER → 2024-08-22 | Outpatient (CLI) | payer OTHER, SELFPAY ==
[2024-08-22 10:44] LABS: Glucose Challenge Gest 1H 50g 145 mg/dL (70-140)
== END | disposition home or self-care (01) ==
PROVIDERS: Referring Provider Advanced Practice Midwife; Visit Provider Advanced Practice Midwife
DX: O09.90 Supervision of high risk pregnancy, unspecified, unspecified trimester (principal); Z3A.00 Weeks of gestation of pregnancy not specified
CPT/HCPCS: 36415; 82950; 87081

== ENCOUNTER → 2024-08-26 | Outpatient (CLI) | payer OTHER, SELFPAY ==
[2024-08-26 10:22] LABS: Bedside Glucose 76 mg/dL (74-106)
[2024-08-26 10:58] LABS: Absolute Neutrophil Count 6.3 X10^3/uL (2.0-7.7); Basophil# 0.04 X10^3/uL; Basophil% 0.3 % (0-1); Eosinophil# 0.13 X10^3/uL; Eosinophils% 1.1 % (0-5); Hematocrit 36.7 % (37-47); Hemoglobin 11.8 g/dL (12.0-15.0); Lymphocyte % 37.7 % (19-41); Mean Corp Hgb Conc 32.2 g/dL (32-36); Mean Corpuscular Hgb 29.5 pg (27.0-32.0); Mean Corpuscular Volume 91.8 fL (81-99); Mean Platelet Vol. 9.4 fl (6.2-12.0); Monocyte# 0.81 X10^3/uL; Monocyte% 6.8 % (0-10); NRBC Flagged by Analyzer 0 % (0-5); Neutrophil % 52.8 % (47-70); POSITIVE MORPHOLOGY YES; Platelet Count 201 K/mm3 (150-450); RBC Distribution Width CV 12.8 % (11.6-14.6); RBC Distribution Width SD 42.5 fl (35.1-43.9); White Blood Count 11.9 K/mm3 (4.4-11.0)
[2024-08-26 10:59] LABS: Differential Indicated SCAN CRITERIA MET
[2024-08-26 11:19] LABS: Differential Comment SCANNED
[2024-08-26 11:21] LABS: Glucose GTT-Gestation. Fasting 78 mg/dL (<105)
[2024-08-26 12:32] LABS: Glucose GTT-Gestational 1 Hr 162 mg/dL (<190)
[2024-08-26 13:25] LABS: Glucose GTT-Gestational 2 Hr 169 mg/dL (<165)
[2024-08-26 13:52] LABS: Glucose GTT-Gestational 3 Hr 100 L (<145)
== END | disposition home or self-care (01) ==
LOC: LAB 09:43
PROVIDERS: Referring Provider Advanced Practice Midwife; Visit Provider Advanced Practice Midwife
DX: O36.60X0 Maternal care for excessive fetal growth, unspecified trimester, not applicable or unspecified (principal); O99.810 Abnormal glucose complicating pregnancy; Z3A.00 Weeks of gestation of pregnancy not specified
CPT/HCPCS: 36415; 82951; 82952; 82962; 85025

== ENCOUNTER 2024-09-08 05:18 | Inpatient (IN) | payer OTHER, SELFPAY ==
[2024-09-08] VITALS (27 sets, daily range): BP systolic 91–123; BP diastolic 48–75; PULSE 70–113; RESP 11–19; TEMP 35.2–36.6; O2SAT 94–99; BMI 34.9
[2024-09-08] MEDS: Lactated Ringers 1,000 ML 999 ML IV (05:40)
[2024-09-08 05:55] LABS: Absolute Lymphocyte Count 1.65 X10^3/uL (0.83-4.51); Basophil# 0.04 X10^3/uL; Basophil% 0.5 % (0-1); Eosinophil# 0.13 X10^3/uL; Eosinophils% 1.8 % (0-5); Hematocrit 33.4 % (37-47); Hemoglobin 11.1 g/dL (12.0-15.0); Lymphocyte # 1.65 X10^3/ul (0.83-4.51); Lymphocyte % 22.5 % (19-41); Mean Corp Hgb Conc 33.2 g/dL (32-36); Mean Corpuscular Hgb 30.4 pg (27.0-32.0); Mean Corpuscular Volume 91.5 fL (81-99); Monocyte% 5.5 % (0-10); NRBC Flagged by Analyzer 0 % (0-5); Neutrophil # 5.01 X10^3/uL (2.7-7.7); Neutrophil % 68.3 % (47-70); Platelet Count 228 K/mm3 (150-450); RBC Distribution Width SD 42.5 fl (35.1-43.9); Red Blood Count 3.65 M/mm3 (4.2-5.4); White Blood Count 7.3 K/mm3 (4.4-11.0)
[2024-09-08] MEDS: Acetaminophen 500 MG Tablet 1000 MG PO ×3 (05:55→18:51)
[2024-09-08] MEDS: Sodium Citrate/Citric Acid 30 ML UDC PO (05:56)
--- NOTE | 2024-09-08 07:14 | HP.PCM.OB_ITS ---
HPI - General General Date of Admission: 09/08/24 HPI Narrative MAGY CASAREZ, is a 39 y/o @ 39 weeks who presents [facility] for a repeat section and bilateral salpingectomy. Maternal Data Information ZOEY Calculator Estimated Delivery Date Method Current WG Current Estimate 09/15/24 LMP (Certain) 39w 0d PFSH PFSH Medical History Breech presentation Asthma Home Medications ?Medication ?Instructions ?Recorded ?Last Taken ?Type multivitamin no.47-iron fum 27 1 cap PO DAILY 02/15/24 Unknown History mg-folate no.1 1 mg-dha 300 mg capsule (PNV-DHA) Allergy/AdvReac Type Severity Reaction Status Date / Time No Known Allergies Allergy Verified 09/08/24 05:25 Family History Grandmother Diabetes Surgical History Delivery by section Social History adopted: No household members: spouse and children housing: house number of children: 1 current occupational status: unemployed current occupation: [employer] current occupational exposures/hazards: No (physical holds on kids) pets and animals: Yes (Not managing litterbox) pets and animals: cat(s) history of recent travel: No ([place] in May) sexually active: Yes Smoking Status: Never smoker alcohol intake: never substance use type: does not use well-balanced diet: daily or most days caffeine: No eating out: rarely or never during the past year weight has: decreased > 10 lbs what type of physical activity do you participate in: none and walking frequency: 1-2 times per week duration: 30-45 minutes/day shari/jehovah's witness: Adventism seatbelt use: always do you feel safe at home: Yes additional social history: - Quentin History 2 Elective abortions Hx Para 1 Spontaneous abortions Hx # Term Pregnancies Ectopic pregnancies Hx # Pregnancies Multiple births # of living children 1 Past Pregnancies Del. Date Name GA/Weeks Outcome Route Bth Weight Infant Gen Labor Lgth Anesthesia Del [facility] FOB 02/06/23 Julienne 39 live - full term 9lbs 2oz Female epidural [facility] Angela Hough Delivery Date: 02/06/23 Last Updated by: Kira Cobb breech presentation, emergent section. Visit Details Expected Delivery Route/Plan TOLAC sep 15 for RLTCS if no labor patient counseled regarding risks/benefits of trial of labor versus repeat . ACOG/uptodate education given to patient. 89 % likelihood of success per calculator TOLAC consent form signed: yes Labor Preferences- CB/BF classes: [] labor support person: [] labor intervention preferences: open pain management options preferred: epidural cut cord/dad catch: [] : [] PP control planned: [] discussed possible routes of delivery and associated risks: [] special requests: [] Plans Covid status: [] Flu vaccine: [] Tdap vaccine: given Rhogam: na LARC form signed: declined movement and labor precautions reviewed. Problem list reviewed and updated with the most current plan of care details and appropriate orders placed. Relevant counseling for the gestational age provided. Continue routine care and follow up unless otherwise noted in visit notes/problem list details OB Flowsheet Initial Weight: Not Recorded Date -?-?-?-?-?-?-?-?-?-?-?-?- EGA Weight BP Urine Prot -?-?-?-?-?--?-?-?-?-?-?-?- Glucose FHR FuHt Pres Dilation -?-?-?-?-?-?-?-?-?-?-?--?- Effaced St Visit Note 02/19/24 -?-?-?-?-?-?-?-?-?-?-?-?- 10w 1d 149 lb 2 oz 118/70 -?-?-?-?-?-?-?-?-?-?-?-?- 144 -?-?-?-?-?-?-?-?-?-?-?-?- KW- CRL cons wit h dates. Declines NIPT. would like to TOLAC. 03/20/24 -?-?--?-?-?-?-?-?-?-?-?-?- 14w 3d 153 lb 4 oz 129/65 Nega tive -?-?-?-?-?-?-?-?-?-?-?-?- Negative 169 -?-?-?-?-?-?-?-?-?-?-?-?- JV- no cramping or spotting .still has nausea in am. wants tolac and anatomy scan at [facility] 04/18/24 -?-?-?-?-?-?-?-?-?-?-?-?- 18w 4d 156 lb 6 oz 120/77 Nega tive -?-?-?-?-?-?-?-?-?-?-?-?- Negative 154 -?-?-?-?-?-?-?-?-?-?-?-?- JV- no cramping or spotting, no complaints. 05/16/24 -?-?-?-?-?-?-?-?-?-?-?-?- 22w 4d 162 lb 105/59 Trace -?-?-?-?-?-?-?-?-?-?-?-?- Negative 154 Breech -?-?-?-?-?-?-?-?-?-?-?-?- JV- no complaint s today. anatomy scan was normal 06/13/24 -?-?-?-?-?-?-?-?-?-?-?-?- 26w 4d 171 lb 112/72 Negative -?-?-?-?-?-?-?-?-?-?-?-?- Negative 145 -?-?-?-?-?-?-?-?-?-?-?-?- JV- no complaint s. plan gct, rhogam and tdap next visit. 06/27/24 -?-?-?-?-?-?-?-?-?-?-?-?- 28w 4d 175 lb 107/71 Negative -?-?-?-?-?-?-?-?-?-?-?-?- Negative 143 28 -?-?-?-?-?-?-?-?-?-?-?-?- KW- no vb/crampi ng. good fm. Tdap and Rhogam today. passed glucose. wanting PP tubal. KW- no vb/cramping. good fm. Tdap and Rhogam today. passed glucose. wanting PP tubal. LArc today 07/11/24 -?-?-?-?-?-?-?-?-?-?-?-?- 30w 4d 177 lb 96/94 Negative -?-?-?-?-?-?-?-?-?-?-?-?- Negative 140 31 -?-?-?-?-?-?-?-?-?-?-?-?- SM- no vb lof go od fm no regular ctx 07/25/24 -?-?-?-?-?-?-?-?-?-?-?-?- 32w 4d 180 lb 101/66 Trace -?-?-?-?-?-?-?-?-?-?-?-?- Negative 155 34 -?-?-?-?-?-?-?-?-?-?-?-?- KW- no vb/lof/ct x. good fm. Pepcid for acid reflux. KW- no vb/lof/ctx. good fm. Pepcid for acid reflux. Growth US ordered. 08/08/24 -?-?-?-?-?-?-?-?-?-?-?-?- 34w 4d 181 lb 130/76 121/78 1+ -?-?-?-?-?-?-?-?-?-?-?-?- Negative 150 35 -?-?-?-?-?-?-?--?-?-?-?-?- SM- no vb lof go od fm no regular ctx TOLAC consent 08/22/24 -?-?-?-?-?-?-?-?-?-?-?-?- 36w 4d 186 lb 2 oz 104/70 Trac e -?-?-?-?-?-?-?-?-?-?-?-?- Negative 150 Cephalic 0 -?-?-?-?-?-?-?-?-?-?-?-?- JV- no lof, vagi nal bleeding, or dec fm. will be approx 10 pounds at 40 weeks. wants to move rpt cs to 39 weeks. she repeated her GCT today and it is pending. 08/29/24 -?-?-?-?-?-?-?-?-?-?-?-?- 37w 4d 186 lb 116/82 Trace -?-?-?-?-?-?-?-?-?-?-?-?- Negative 140 39 Cephalic 1 -?-?-?-?-?-?-?-?-?-?-?-?- SM- no vb lof go od fm noregular ctx 09/05/24 -?-?-?-?-?-?-?-?-?-?-?-?- 38w 4d 188 lb 4 oz 105/62 Trac e -?-?-?-?-?-?-?-?-?-?-?-?- Negative 157 38 Cephalic 1 -?-?-?-?-?-?-?-?-?-?-?-?- JV- [facility] planning repeat section on sunday am. no complaints today. ROS Constitutional Constitutional: Denies change in weight, fatigue, fever(s), headache(s), poor appetite or weakness Eyes Eyes: Denies blurry vision, change in vision, seeing flashes or spots in vision ENT HEENT: Denies dizziness, headache(s), loss taste/smell or sore throat Cardiovascular Cardiovascular: Denies chest pain, dizziness, dyspnea, irregular heart rhythm, leg edema, palpitations, rapid heart rate or vomiting Respiratory/Chest Respiratory/Chest: Denies chest tightness, cough, dyspnea or breast pain Gastrointestinal Gastrointestinal: Denies abdominal pain, anorexia, constipation, cramping, diarrhea, hemorrhoids, vomiting or weight changes Genitourinary Genitourinary: Denies dysuria, flank pain, genital lesions, genital pain, urinary frequency or urinary urgency Musculoskeletal Musculoskeletal: Denies back pain, difficulty walking, joint pain, limited range of motion, muscle cramps or numbness Integumentary Integumentary: Denies lesions or unusual bruising Neurologic Neurologic: Denies abnormal movements, abnormal speech, dizziness, numbness, seizure-like activity or syncope Psychiatric Psychiatric: Denies anxiety, behavioral changes, change in appetite, change in libido, cognitive impairment, confusion, depression, difficulty concentrating, hallucinations or suicidal thoughts Endocrine Endocrinology: Denies excessive sweating, polydipsia or polyuria Hematologic/Lymphatic Hematologic/Lymphatic: Denies easy bleeding, easy bruising or lymphadenopathy Allergic/Immunologic Allergic/Immunologic: Denies itchy eyes, lip swelling, seasonal rhinorrhea, rhinitis, throat swelling, tongue swelling, eczemia, wheezing or asthma Vital Signs Vital Signs Vital Signs: 09/08/24 05:32 09/08/24 05:32 09/08/24 05:32 Temperature Temperature Source Temporal Pulse Rate 113 H Respiratory Rate Blood Pressure 123/75 H Blood Pressure Mean BP Systolic 123 BP Diastolic 75 Blood Pressure Source Blood Pressure Position Blood Pressure Location Pulse Ox Oxygen Delivery Method 09/08/24 05:32 09/08/24 05:32 09/08/24 05:32 Temperature 97.0 F L Temperature Source Pulse Rate Respiratory Rate 16 Blood Pressure Blood Pressure Mean BP Systolic BP Diastolic Blood Pressure Source Blood Pressure Position Blood Pressure Location Pulse Ox 96 Oxygen Delivery Method 09/08/24 05:39 Temperature 97.0 F L Temperature Source Temporal Pulse Rate 113 H Respiratory Rate 16 Blood Pressure 123/75 H Blood Pressure Mean 91 BP Systolic BP Diastolic Blood Pressure Source Monitor Blood Pressure Position Semi-Fowlers Blood Pressure Location Right Arm Pulse Ox 96 Oxygen Delivery Method Room Air Weight Weight: 190 lb 11.198 oz Body Mass Index (BMI) 34.9 Physical Exam Const alert, oriented x3, no apparent distress and healthy appearing General Appearance: cooperative; Negative for anxious HEENT normocephalic Face and Sinus: normal facial exam Eyes EOMs intact bilaterally and no scleral icterus General Eye: normal appearance of both eyes Neck full ROM and supple Lymph Lymphatic: no lymphadenopathy noted Chest Chest: abnormal inspection of the chest Resp normal respiratory effort Effort and Inspection: able to speak in complete sentences Cardio regular rate GI soft to palpation and non-tender Inspection: gravid Palpation: soft; Negative for tender Back/Spine no CVA tenderness Extremity normal to inspection, full ROM and no clubbing, cyanosis or edema General Extremity: Negative for calf tenderness or edema Skin Lesions: no lesions Rashes: no rashes Psych mental status grossly normal Labs Labs Labs: Blood Type O NEGATIVE Antibody Screen NEGATIVE Hct 33.4 % (37-47) L Hgb 11.1 g/dL (12.0-15.0) L Obstetrics Ultrasound Syphilis Total Ab Non-reactive Rubella IgG Antibody Reactive (Nonreactive) Hep Bs Antigen Non-Reactive (Nonreactive) Hepatitis C Antibody Non-Reactive (Nonreactive) Chlamydia DNA (NISA) Negative (Negative) N.gonorrhoeae DNA (NISA) Negative (Negative) HIV 1&2 Antibody Non-Reactive (Nonreactive) Glucose 1 Hr 50 gm 145 mg/dL (70-140) H Gest Glucose Tolerance MG/DL Group B Strep DNA Negative (Negative) Rhogam given: Yes Assessment & Plan (1) Abnormal glucose affecting : COMMENT: passed glucose (2) Large for gestational age fetus affecting management of mother: (3) AMA (advanced maternal age) multigravida 35+: COMMENT: declined genetic screening, growth US 36 weeks, delivery by 39- 40 (4) Supervision of high-risk : COMMENT: PRR,, ZOEY 09/15/24, PC Julienne, Quentin. AC 99.99%-rpt GCT. (5) : QUALIFIERS: Weeks of gestation: 38 weeks Qualified Code(s): Z3A.38 - 38 weeks gestation of COMMENT: declined genetic & carrier testing nl anatomy (6) Hx of section: COMMENT: breech, emergent plan tolac, if no labor plan RLTCS and BS 09/08 with JV @ 7:10 (7) Rh negative state in antepartum period: COMMENT: Rhogam @ 28 weeks and PRN- A+, given 06/27/2024 PLAN: Plan After discussing the patient's diagnosis and treatment plan options, patient wishes to proceed with surgical management. I have discussed with the patient the risks, benefits, and alternatives of the procedure which include but are not limited to risks of anesthesia, bleeding, infection, possible damage to bowel, bladder, or surrounding vasculature which could lead to additional surgery to evaluate any complications. Patient agrees to procedure and wishes to proceed. ACOG/uptodate references given for additional information regarding procedure.
--- NOTE | 2024-09-08 07:17 | DCINST_ITS ---
Discharge Instructions Diet Discharge Diet: No restrictions Activity Discharge Activity: May Not Drive (for 2 weeks or while taking narcotic pain medications.), May Shower and May Take a Tub Bath (in 7 days.) May resume sexual activity in: 4-6 weeks Weight Bearing Status: Full weight bearing Lifting Restrictions: 20 pounds Dressing / Incision Call your doctor if your incision/area has: Continuous Slow Oozing, Sudden Increased Bleeding, Increased Pain/ Swelling, Increased Redness and Foul Smelling Discharge Call your doctor if you observe: Fever of 101 or Higher and Using more than 1 pad per hour Suture Line Care: Avoid Pulling/Pushing and Avoid Pinching/Bending Cleanse incision/area with: Soap & Water and Keep Dressing Clean & Dry Follow Up Care Please Follow Up With: Angela Cruz DO When: Call [phone] to make an appointment for an incision check in 1-2 weeks. Test Results: Test results from this visit will be discussed in further detail at your follow- up appointment, if applicable. Discharge Plan Admission Admit Date/Time: 09/08/24 05:18 Primary Reason for Your Visit: section Attending Provider: Angela Cruz Primary Care Provider: Khadra Flaherty Primary Discharge Orders/Prescriptions Prescriptions: New ibuprofen 800 mg tablet 800 mg PO Q8H PRN (Reason: pain) Qty: 30 0RF oxycodone-acetaminophen [Percocet] 5-325 mg tablet 1 tab PO Q4H PRN (Reason: pain) 7 Days Qty: 20 0RF Rx Instructions: 1-2 tabs q 4 hrs as needed for pain No Action PNV-DHA 27 mg iron-1 mg -300 mg capsule 1 cap PO DAILY Referrals / Follow Up: Care PhysicianKhadra Primary [Primary Care Provider] - Disposition Disposition (needs filled in before D/C Order can be placed): Home, Self Care
[2024-09-08] MEDS: Cefazolin 2 GM in Syringe IV (07:30)
--- NOTE | 2024-09-08 07:46 | FALS_PTH ---
PATIENT: MAGY CASAREZ LOC: [facility] U#:[id number] AGE/SX: 39/F ROOM: WP006 RE09/08/[address]: Dr. Angela Cruz DO : 1985 BED: 1 DIS: 09/09/2024 SPEC #: [id number] RECD: 09/08/24 13:15 STATUS: LIZ ANUP #: [id number] JOSSELYN: 09/08/24 07:[address]: Angela Cruz DEPT: SURGICAL PATHOLOGY RECD BY: Beatrice Oconnor ENTERED: 09/08/24 13:15 SP TYPE: FALL TUBES OTHR DR: No Primary Care Phys Tissues: Fallopian tube Procedures: Surgery Specimen Level II HEADER OPERATION: Tubal ligation PRE-OP DIAGNOSIS: Sterilization TISSUE SUBMITTED: Bilateral fallopian tubes- stitch in right MICROSCOPIC DIAGNOSIS Bilateral fallopian tubes, salpingectomy: Bilateral fallopian tubes, no pathologic diagnosis. SJ: 09/09/2024 MICROSCOPIC DESCRIPTION Slides are reviewed. GROSS DESCRIPTION Received in fixative is one container labeled with the patient's name and designated bilateral fallopian tubes- tie in right. The specimen consists of bilateral fallopian tubes including fimbrial ends. Right fallopian tube measures 8.5cm in length and 1.0cm in diameter and left fallopian tube measures 6.2 cm in length and 1.0 cm in diameter. Sections reveal unremarkable cut surfaces. Golf Ball Cover Treater sections are submitted in two cassettes. 1- right fallopian tube, 2- left fallopian tube. / ALICIA: 09/08/2024 TC: 4 CPT: 10903 x2
[2024-09-08] MEDS: Oxytocin 15 Units/NS 250ml 15 UNITS/250 ML IV.SOLN 83 UNITS IV (08:30)
--- NOTE | 2024-09-08 08:35 | OP.PCM_ITS ---
Assessment & Plan (1) Abnormal glucose affecting : COMMENT: passed glucose (2) Large for gestational age fetus affecting management of mother: (3) AMA (advanced maternal age) multigravida 35+: COMMENT: declined genetic screening, growth US 36 weeks, delivery by 39- 40 (4) Supervision of high-risk : COMMENT: PRR,, ZOEY 09/15/24, PC Julienne, Quentin. AC 99.99%-rpt GCT. (5) : QUALIFIERS: Weeks of gestation: 38 weeks Qualified Code(s): Z3A.38 - 38 weeks gestation of COMMENT: declined genetic & carrier testing nl anatomy (6) Hx of section: COMMENT: breech, emergent plan tolac, if no labor plan RLTCS and BS 09/08 with JV @ 7:10 (7) Rh negative state in antepartum period: COMMENT: Rhogam @ 28 weeks and PRN- A+, given 06/27/2024 Maternal Data Information ZOEY Calculator Estimated Delivery Date Method Current WG Current Estimate 09/15/24 LMP (Certain) 39w 0d Final ZOEY Source: LMP Gestational age: 39 Details Operative Information Date of Procedure: 09/08/24 Pre-Operative Diagnosis: 39 y/o @ 39 weeks, prior section, desires elective sterilization Post-Operative Diagnosis: 39 y/o @ 39 weeks, prior section, desires elective sterilization Indications for : Repeat Elective Classification: Scheduled Procedure Type: low transverse communications tower climber #1: Trace Brown Type of Anesthesia: Spinal Antibiotic Given: Ancef 2 grams IV x1 Estimated Blood Loss: 500 Fluids Replaced: 1 liter Procedure Start Time: 07:41 Procedure Stop Time: 08:11 Time of Delivery: 07:46 Findings Description of Procedure: The patient was brought to the operating room, spinal anesthesia was found to be adequate. She was prepped and draped in the normal sterile fashion and was placed in a dorsal supine position with a leftward tilt. Pfannenstiel skin incision was made with a scalpel and carried through to the underlying layers. The fascia was nicked in the midline and extended laterally using Ly scissors. The anterior aspect of the fascia was grasped with Nathaniel clamps and the underlying rectus muscles dissected off using the Metzenbaum scissors. The rectus muscles were in the midline. Peritoneum was entered sharply. The uterus was identified and a bladder blade was inserted into the abdomen. Bladder flap was created off the uterus using Metzenbaum scissors. A transverse incision was made with a scalpel and extended laterally manually. The 's feet were first to present and were gently grasped and guided out of the uterine incision. The legs and torso followed. The anterior shoulder was carefully swept across the chest. The infant was rotated to the opposite side and opposite arm was swept down and over the chest. The head was delivered with the help of my assistant corporate controller using fundal pressure and also a finger in the mouth to flex the head. The mouth and nares were bulb suctioned. After a 30 second delay the cord was clamped and cut. The end was handed off to the awaiting shrink pit operator for routine assessment. Placenta was delivered manually without difficulty but was noted to be bilobed and sent for pathology analysis. The uterus was exteriorized and cleared of all clots and debris. Incision was closed with an 0 Vicryl suture in a running locked fashion. Second layer of 1-0 monocryl suture was used in imbricating manner to create excellent closure and hemostasis. A bilateral salpingectomy was performed by first grasping the right tube with a roxie clamp and the underlying mesosalpinx was cauterized and cut. The tube was removed to the fundus and the same procedure was performed on the left side. The uterus was returned to the abdomen. The gutters were cleared of all clots and debris. The peritoneum was closed in a pursestring pattern using a 3-0 Vicryl suture. This muscle was reapproximated with a 3-0 Vicryl. The fascia was closed with a stratafix suture. Subcutaneous tissue layer was irrigated then closed using a plain gut suture. The skin was closed with a 4-0 Monocryl subcuticular stitch. The skin was also sealed with surgical glue. The patient tolerated the procedure well sponge lap and needle counts were correct at each tissue closure plane and the patient is now being brought to the recovery room in stable condition. The assistant corporate controller helped with retraction, suction, and suture cutting. He also helped with fundal pressure to assist with the delivery of the infant. baby boy Anthony 9 lbs 2 oz Presentation: Positive for Vertex Amniotic Fluid Description: Clear Placental Delivery Description: Manual Removal Placenta Disposition: [facility] Specimen(s) Sent to Pathology: none Cord Vessel Description: 3 Vessels Cord Entanglement: Around neck x 2, loose Nuchal Cord Compression: Without compression Infant A Gender: Male (1 minute): 9 (5 minute): 9 Delayed Cord Clamping: Yes Complications Risks of Surgery Discussed w/Patient: Bleeding, Anesthesia Risks, Infection, Need for Future C-Sections, Permanency, Failure Rate of 1 to 2%, Injury to surrounding structure(s) including bowel and bladder and Availability of other non-permanent control options Complications: none Multi Select Codes Urinary/Genital Urinary/Genital CPT Codes: 04919 BS/O laparotomy and 46971 Delivery [facility]
[2024-09-08] MEDS: Ketorolac 30 MG/ML Syringe IV ×3 (09:13→21:37)
[2024-09-08] MEDS: Senna/Docusate Sodium 1 Tablet PO (10:08)
[2024-09-08 11:18] LABS: Pathology Specimen OB SEE PATHOLOGY REPORT
[2024-09-08] MEDS: 0.9% Saline Lock 10 ML Syringe IV ×3 (12:16→21:37)
[2024-09-08] MEDS: Ondansetron 4 MG/2 ML Vial IV (12:16)
--- NOTE | 2024-09-08 13:17 | NURSING ---
Patient pressures were soft during post c section vitals.93/53 was last BP taken. This RN requested a 500 ml bolus. Ok'd per director television news, Kita. IV bolus started at 1250. Lora Em RN
[2024-09-08] MEDS: proCHLORPERazine 10 MG/2 ML Vial IV (15:29)
[2024-09-08] MEDS: LACTATED RINGERS 500 ML 999 ML IV (17:35)
[2024-09-08 18:23] LABS: Bedside Glucose 125 mg/dL (74-106)
--- NOTE | 2024-09-08 19:09 | NURSING ---
PAtient reported dizziness while sitting, per anesthesia, give 500 ml bolus. Lora Em RN
[2024-09-09 00:50] VITALS: BP 101/62; PULSE 78; RESP 16; TEMP 36.6; O2SAT 97
[2024-09-09] MEDS: Acetaminophen 500 MG Tablet 1000 MG PO ×3 (00:50→13:04)
[2024-09-09 02:59] LABS: Hematocrit 32.6 % (37-47); Hemoglobin 10.8 g/dL (12.0-15.0); Mean Corp Hgb Conc 33.1 g/dL (32-36); Mean Corpuscular Hgb 30.3 pg (27.0-32.0); Mean Corpuscular Volume 91.6 fL (81-99); Platelet Count 201 K/mm3 (150-450); RBC Distribution Width CV 12.8 % (11.6-14.6); RBC Distribution Width SD 42.3 fl (35.1-43.9); Red Blood Count 3.56 M/mm3 (4.2-5.4); White Blood Count 10.8 K/mm3 (4.4-11.0)
[2024-09-09] MEDS: Ketorolac 30 MG/ML Syringe IV (03:39)
[2024-09-09] MEDS: 0.9% Saline Lock 10 ML Syringe IV (03:40)
[2024-09-09 03:42] VITALS: BP 100/63; PULSE 79; RESP 16; TEMP 36.8; O2SAT 96
--- NOTE | 2024-09-09 03:49 | NURSING ---
During the day 09/08 after and beginning of this RN shift patient was dizzy when getting out of bed and would feel better once laying down. All VS WNL and no other symptoms. Patient did get shaky after getting up and getting dizzy around 2145 but resolved quickly after getting back in bed. Delayed discontinuing catheter until patient felt stable out of bed but output was appropriate. Consulted anesthesia for any other oders but just to monitor patient and evaluate for decreased dizziness when getting up. Patient up to bathroom around 0230 and felt stable and reported no feelings of being dizzy.
--- NOTE | 2024-09-09 07:18 | PCM.PN.OB ---
Subjective Subjective Patient is laying in bed comfortably without complaints. She states that she slept on an off during the night. Lochia is mild and pain is minimal. Objective Data Objective Data Vital Signs: Vital Signs Temp Pulse Resp BP Pulse Ox O2 Del Method 98.2 F 79 16 100/63 96 Room Air 09/09/24 03:42 09/09/24 03:42 09/09/24 03:42 09/09/24 03:42 09/09/24 03:42 09/09/24 03:42 Oxygen Delivery Method Room Air Weight: 190 lb 11.198 oz Body Mass Index (BMI) 34.9 Intake & Output: Intake and Output for Last 24 Hours 09/07/24 09/08/24 09/09/24 23:59 23:59 23:59 Intake Total 1770 / 1770 Output Total 3200 / 3200 Balance -1430 / -1430 - Lab / Micro Data 09/09/24 02:52 Labs: Laboratory Results - last 24 hr 09/08/24 05:40: Blood Type O NEGATIVE, Antibody Screen NEGATIVE 09/08/24 17:56: POC Glucose 125 H 09/09/24 02:52: WBC 10.8, RBC 3.56 L, Hgb 10.8 L, Hct 32.6 L, MCV 91.6, MCH 30.3, MCHC 33.1, RDW Std Deviation 42.3, RDW Coeff of Gina 12.8, Plt Count 201, MPV 9.0 ROS Constitutional Constitutional: Reports systems reviewed and no addt'l complaints, except as documented Cardiovascular Cardiovascular: Denies chest pain, dizziness, dyspnea or irregular heart rhythm Respiratory/Chest Respiratory/Chest: Denies cough, pain on inspiration or shortness of breath at rest Gastrointestinal Gastrointestinal: Denies abdominal pain, nausea or vomiting Genitourinary Genitourinary: Denies burning urination Musculoskeletal Musculoskeletal: Denies muscle cramps, muscle spasms or muscle weakness Neurologic Neurologic: Denies confusion, dizziness, headache(s) or lack of coordination Psychiatric Psychiatric: Denies anxiety, behavioral changes or depression Physical Exam HEENT normocephalic Resp normal respiratory effort and normal air movement GI soft to palpation, non-tender and non-distended Rectal Exam: other Other Details: Incision is clean, dry, and intact no CVA tenderness Extremity normal to inspection General Extremity: edema bilateral (trace ) Assessment & Plan (1) Status post delivery: (2) Abnormal glucose affecting : COMMENT: passed glucose (3) Large for gestational age fetus affecting management of mother: (4) AMA (advanced maternal age) multigravida 35+: COMMENT: declined genetic screening, growth US 36 weeks, delivery by 39- 40 (5) Supervision of high-risk : COMMENT: PRR,, ZOEY 09/15/24, ADAIR Robins, Quentin. AC 99.99%-rpt GCT. (6) Rh negative state in antepartum period: COMMENT: Rhogam @ 28 weeks and PRN- A+, given 06/27/2024 PLAN: Plan s/p LTCS PPD # 1 1. routine post care 2. breast feeding- support given 3. rh negative work up ordered 4. rubella immune 5. patient would like to go home later today if possible
[2024-09-09 09:12] VITALS: BP 107/58; PULSE 86; RESP 16; TEMP 36.9; O2SAT 96
[2024-09-09] MEDS: Ibuprofen 600 MG Tablet PO ×2 (09:26→17:40)
[2024-09-09] MEDS: Senna/Docusate Sodium 1 Tablet PO (09:26)
[2024-09-09 14:40] VITALS: BP 105/71; PULSE 92; RESP 16; TEMP 36.8; O2SAT 97
== END 2024-09-09 18:25 | disposition home or self-care (01) | DRG 785 ==
PROVIDERS: Admitting Provider Obstetrics & Gynecology; Referring Provider Obstetrics & Gynecology; Visit Provider Obstetrics & Gynecology
PROC: 10D00Z1 Extraction of Products of Conception, Low, Open Approach (ICD-10-PCS; CPT 59514; principal; 2024-09-08 07:00)
DX: O36.63X0 Maternal care for excessive fetal growth, third trimester, not applicable or unspecified (principal); O26.893 Other specified pregnancy related conditions, third trimester; O34.211 Maternal care for low transverse scar from previous cesarean delivery; O69.81X0 Labor and delivery complicated by cord around neck, without compression, not applicable or unspecified; Z67.41 Type O blood, Rh negative; Z37.0 Single live birth; Z3A.39 39 weeks gestation of pregnancy; Z30.2 Encounter for sterilization; Z87.59 Personal history of other complications of pregnancy, childbirth and the puerperium
CPT/HCPCS: 59025; 59050; 82962; 85025; 85027; 86780; 86850; 86900; 86901; 88302; 99221; J7120; A4216; G0378; J2405